=== PATIENT | female | born 2000 | race Caucasian/White ===

== ENCOUNTER 2024-06-12 00:20 | Emergency (ER) | payer OTHER ==
[2024-06-12 00:35] VITALS: BP 123/90; PULSE 64; RESP 18; TEMP 98.6; BMI 26.2
[2024-06-12] MEDS: KETOROLAC TROMETHAMINE 30 MG/1 ML VIAL IM ONE (01:54)
[2024-06-12] MEDS: ACETAMINOPHEN 325 MG TABLET (FP) PO ONE (01:54)
[2024-06-12] MEDS ORDERED: ACETAMINOPHEN 325 MG TABLET (FP) ONE (02:06)
== END 2024-06-12 03:19 | disposition home or self-care (01) ==
LOC: JER 00:20
DX: O99.512 Diseases of the respiratory system complicating pregnancy, second trimester (principal); J06.9 Acute upper respiratory infection, unspecified; J02.9 Acute pharyngitis, unspecified; O99.891 Other specified diseases and conditions complicating pregnancy; M79.10 Myalgia, unspecified site; Z3A.16 16 weeks gestation of pregnancy; O98.512 Other viral diseases complicating pregnancy, second trimester; U07.1 COVID-19
CPT/HCPCS: 0241U-QW; 87651; 99283-25